=== PATIENT | male | born 1955 | race African-American/Black ===

== ENCOUNTER 2021-02-24 09:33 | Outpatient (CLI) | payer MEDICARE, OTHER ==
[~2021-02-24] VITALS: Ht 177.8 cm; Wt 84.1 kg
[2021-02-24] VITALS (9 sets, daily range): BP systolic 97–127; BP diastolic 62–82
[~2021-02-24 09:33] MED LIST: AMLO-186 PO; ASPI-630 PO; ASPI325T8 PO; ATOR20TA PO; CETI10TA74 PO; CLOP75TA PO; FURO-68 PO; HYDR-2145 PO; METO25TA2 PO; METO25TA4 PO; POTA10TA12 PO
[2021-02-24] MEDS ORDERED: PANT20TA2 PO (09:57)
[2021-02-24] MEDS ORDERED: astelin NAS (09:57)
[2021-02-24] MEDS ORDERED: DILT60TA3 PO (09:57)
[2021-02-24] MEDS ORDERED: FLUT9.9S NS (09:57)
[2021-02-24] MEDS ORDERED: NITR0.4T22 SL (09:57)
[2021-02-24 10:13] LABS: HEMATOCRIT 42.6 % (39.0-53.0); HEMOGLOBIN 14.5 g/dL (13.0-17.5); RED BLOOD COUNT 4.44 x10^6/uL (4.30-5.70); RED CELL DISTRIBUTION WIDTH 13.2 % (11.5-14.5); WHITE BLOOD COUNT 4.6 x10^3/uL (4.0-11.0)
[2021-02-24 10:25] LABS: CALCIUM 9.3 mg/dL (8.5-10.1); CREATININE 1.2 mg/dL (0.7-1.3); GFR 73.5; POTASSIUM 4.4 mmol/L (3.5-5.1)
[2021-02-24 10:32] LABS: PROTHROMBIN TIME PATIENT 12.6 SEC (11.7-14.0)
[2021-02-24] MEDS ORDERED: LIDOCAINE 2%/EPI 1:100,000 20 ML VIAL. ONE (11:19)
[2021-02-24] MEDS ORDERED: LIDOCAINE 2%/EPI 1:100,000 20 ML VIAL. IJ ONE (11:30)
[2021-02-24] MEDS ORDERED: fentaNYL PF VIAL 100 MCG/2 ML VIAL IV ONE (11:30)
[2021-02-24] MEDS ORDERED: MIDAZOLAM HCL/PF 5 MG/5 ML VIAL. ONE (11:32)
[2021-02-24] MEDS ORDERED: fentaNYL PF VIAL 100 MCG/2 ML VIAL ONE (11:32)
[2021-02-24] MEDS ORDERED: MIDAZOLAM HCL/PF 5 MG/5 ML VIAL. IV ONE (11:45)
[2021-02-24] MEDS ORDERED: ceFAZolin SODIUM 1 GM in IV NORMAL SALINE 100ML 100 ML IRR ONE (12:00)
--- NOTE | 2021-02-24 12:27 | PDOC ---
MODERATE SEDATION ASSESSMENT RISKS/ALTERNATIVES Risks/Alternatives Risks and alternatives of this type of sedation and procedure discussed with: RISK/ALTERNATIVES: Patient H & P ON CHART H & P H & P on chart and reviewed for co-morbid conditions and appropriate labs. H&P ON CHART: Yes STATUS PREG STATUS ASSESSED: N/A MEDS/ALLERGIES REVIEWED Meds/Allergies Reviewed Medications and Allergies including time and route of recently administered narcotics and sedatives. MEDS/ALLERGIES REVIEWED: Yes ASA RATING ASA RATING: III AIRWAY ASSESSMENT Airway Assessment Airway patency, oral function limitations, presence of caps, crowns, dentures, partials, and ability to extend neck assessed. AIRWAY ASSESSMENT: Yes MALLAMPATI SCORE MALLAMPATI SCORE: II PRE-SEDATION ASSESSMENT PRE-SEDATION ASSESSMENT: Yes OCTAVIANO PUENTE MD Feb 24, 2021 12:27
--- NOTE | 2021-02-24 12:41 | CARD ---
MR#: [id number] Date of Study: 02/24/2021 Ordering Physician: OCTAVIANO CEE, Referring Physician: OCTAVIANO CEE, Tech: APPROVED REPORT PROCEDURES Successful Medtronic automated implantable cardioverter defibrillator generator change MODERATE SEDATION TIME: 40 MINUTES FLUORO TIME: 0.1 MIN DOSE: 0.19 GYCM2 INDICATIONS Ischemic cardiomyopathy s/p AICD implantation presenting with battery depletion PROCEDURE After explaining the risks, benefits, and alternative options, informed consent was obtained from the patient. The patient was brought to the cardiac catheterization lab and the left chest and shoulder were prepp ed and draped in a sterile manner. IV conscious sedation was used throughout procedure with appropriate monitoring and was performed in the presence of a registered nurse who was an independent trained observer other than the physician p erforming the procedure. Specimen(s) Removed: No Estimated Blood loss: 5 cc's. 30 cc of 2% lidocaine was infiltrated into the skin and subcutaneous tissues for local anesthesia. A n incision was made over the previous scar and using blunt dissection and cautery, the pocket was ope yana, the capsule exposed and opened and the previously placed generator removed. The leads were deta ched from the generator, interrogated and found to be functioning well and very attached to a new Med tronic AICD generator model DD MD 3D 1, serial number [id number]. This was placed in the pocket robbin t was subsequently closed in 3 layers. Hemostasis was secured. Patient tolerated the procedure well . There were no immediate complications. The right ventricular lead showed a sensing amplitude of 1 0.4 mV, impedance of 361 ohms and a threshold of 1 V. The right atrial lead showed a sensing amplitu de of 3.5 mV, impedance of 399 ohms and a threshold of 0.5 V. CONCLUSION Successful Medtronic AICD generator change in a patient with ischemic cardiomyopathy presenting with battery depletion. Signed by : Octaviano Cee, Electronically Approved : 02/24/2021 12:40:54
--- NOTE | 2021-02-24 14:31 | NUR ---
Discharge Note: MARIYA AVELAR Discharge instructions and discharge home medications reviewed with Patient and ; and a copy given. All questions have been answered and understanding verbalized. The following instructions and handouts were given: Discontinued lines and drains: Right wrist IV dc'd, tip intact, and bandage applied. Patient discharged to home with via personal vehicle.
== END 2021-02-24 14:36 | disposition home or self-care (01) ==
LOC: CCL 09:33
PROVIDERS: ATTEND Internal Medicine Cardiovascular Disease
DX: Z45.02 Encounter for adjustment and management of automatic implantable cardiac defibrillator (principal); I25.5 Ischemic cardiomyopathy; I25.10 Atherosclerotic heart disease of native coronary artery without angina pectoris; I10 Essential (primary) hypertension; E78.00 Pure hypercholesterolemia, unspecified; F32.9 Major depressive disorder, single episode, unspecified; Z79.899 Other long term (current) drug therapy; Z98.890 Other specified postprocedural states; Z79.82 Long term (current) use of aspirin; Z88.8 Allergy status to other drugs, medicaments and biological substances; Z95.810 Presence of automatic (implantable) cardiac defibrillator
CPT/HCPCS: 33263; 36415; 80048; 85027; 85610; 99152; 99153; C1721; J0690; J2250; J3010; J3490; 33230